=== PATIENT | male | born 1940 | race Caucasian/White ===

== ENCOUNTER → 2023-01-12 | Outpatient (CLI) | payer OTHER | END | disposition home or self-care (01) | LOC: RAH 12:32 | PROVIDERS: ATTEND Chiropractor | DX: I08.3 Combined rheumatic disorders of mitral, aortic and tricuspid valves (principal); I25.9 Chronic ischemic heart disease, unspecified; I11.9 Hypertensive heart disease without heart failure | CPT/HCPCS: 93306 ==